=== PATIENT | female | born 1990 | race Caucasian/White ===

== ENCOUNTER 2017-12-04 18:39 | Emergency (ER) | payer OTHER | END 2017-12-04 18:58 | disposition home or self-care (01) | LOC: E/R 18:58 | DX: L02.92 Furuncle, unspecified (principal) | CPT/HCPCS: 99284; Z7502 ==

== ENCOUNTER 2018-05-06 17:43 | Emergency (ER) | payer MEDICAID, OTHER ==
[2018-05-06 21:11] LABS: URINE BLOOD (Dip) POC 3+ (NEGATIVE); URINE GLUCOSE (Dip) POC Negative (NEGATIVE); URINE KETONES (Dip) POC Negative (NEGATIVE); URINE LEUKOCYTE EST (Dip) POC 2+ (NEGATIVE); URINE NITRITE (Dip) POC Positive (NEGATIVE); URINE TOTAL PROTEIN POC 3+ (NEGATIVE)
== END 2018-05-06 22:09 | disposition home or self-care (01) ==
LOC: FTE 17:43
DX: N30.00 Acute cystitis without hematuria (principal)
CPT/HCPCS: 81003; 81025; 99283

== ENCOUNTER 2018-05-10 17:14 | Emergency (ER) | payer MEDICAID ==
[2018-05-10 18:26] LABS: ADD MAN DIFF? NO
[2018-05-10 18:28] LABS: BASOPHILS % 0.1 % (0.0-2.0); EOSINOPHILS % 0.1 % (0.0-7.0); HEMOGLOBIN 14.4 g/dl (12.0-16.0); LYMPHOCYTES # 1.2 10^3/ul (0.8-2.9); LYMPHOCYTES % 11.3 % (15.0-51.0); MEAN CORPUSCULAR HEMOGLOBIN 30.9 pg (29.0-33.0); MEAN CORPUSCULAR HGB CONC 33.5 g/dl (32.0-37.0); MEAN CORPUSCULAR VOLUME 92.3 fl (82.0-101.0); MEAN PLATELET VOLUME 9.9 fl (7.4-10.4); MONOCYTE # 0.9 10^3/ul (0.3-0.9); MONOCYTES % 8.9 % (0.0-11.0); NEUTROPHIL # 8.4 10^3/ul (1.6-7.5); NEUTROPHILS % 79.2 % (39.0-77.0); PLATELET COUNT 223 10^3/UL (140-415); RED BLOOD COUNT 4.66 10^6/ul (4.20-5.40); RED CELL DISTRIBUTION WIDTH 12.1 % (11.5-14.5)
[2018-05-10 18:28] LABS: WHITE BLOOD COUNT 10.6 10^3/ul (4.8-10.8)
[2018-05-10] MEDS: CEFTRIAXONE 1 GM/50 ML (PMX) 50 ML IVPB (18:37)
[2018-05-10] MEDS: ACETAMINOPHEN 325 MG TAB PO (18:37)
[2018-05-10] MEDS: SODIUM CHLORIDE 0.9% 1L BAG IV* (18:38)
[2018-05-10 18:45] LABS: ALANINE AMINOTRANSFERASE 146 IU/L (13-69); ALBUMIN 4.4 g/dl (3.3-4.9); ALBUMIN/GLOBULIN RATIO 1.04; ALKALINE PHOSPHATASE 153 IU/L (42-121); ANION GAP 19 (8-16); ASPARTATE AMINO TRANSFERASE 110 IU/L (15-46); BILIRUBIN,INDIRECT 0.6 mg/dl (0-1.1); BILIRUBIN,TOTAL 0.6 mg/dl (0.2-1.3); BLOOD UREA NITROGEN 7 mg/dl (7-20); CALCIUM 9.3 mg/dl (8.4-10.2); CARBON DIOXIDE 27 mmol/L (21-31); CHLORIDE 100 mmol/L (97-110); CREATININE 0.69 mg/dl (0.44-1.00); GLUCOSE 136 mg/dl (70-220); POTASSIUM 3.5 mmol/L (3.5-5.1); SODIUM 142 mmol/L (135-144); TOTAL PROTEIN 8.6 g/dl (6.1-8.1)
[2018-05-10 18:46] LABS: INR 1.02; PROTIME 13.5 Sec (11.9-14.9); PT RATIO 1.1
[2018-05-10 18:47] LABS: PARTIAL THROMBOPLASTIN TIME 33.8 Sec (25.0-35.0)
[2018-05-10 18:50] LABS: LACTIC ACID 2.1 mmol/L (0.5-2.0)
[2018-05-10] MEDS: IBUPROFEN 600 MG TAB PO (19:04)
[2018-05-10 19:18] LABS: ADD UMIC YES; UR ASCORBIC ACID NEGATIVE (NEGATIVE); UR BILIRUBIN (Dip) NEGATIVE (NEGATIVE); UR BLOOD (Dip) 2+ mg/dL (NEGATIVE); UR CLARITY TURBID (CLEAR); UR COLOR AMBER (YELLOW); UR GLUCOSE (Dip) 2+ mg/dL (NEGATIVE); UR KETONES (Dip) NEGATIVE (NEGATIVE); UR LEUKOCYTE ESTERASE (Dip) 3+ Leu/ul (NEGATIVE); UR MUCUS MODERATE /HPF (NONE SEEN); UR NITRITE (Dip) POSITIVE (NEGATIVE); UR RBC 19 /HPF (0-5); UR SPECIFIC GRAVITY (Dip) 1.019 (1.003-1.030); UR SQUAMOUS EPITHELIAL CELL MODERATE /HPF (FEW); UR TOTAL PROTEIN (Dip) 2+ mg/dl (NEGATIVE); UR UROBILINOGEN (Dip) 2+ mg/dL (NEGATIVE); UR WBC > 182 /HPF (0-5)
[2018-05-10] MEDS: ONDANSETRON 4 MG INJ IV (20:07)
[2018-05-10] MEDS: morphine 2 MG INJ IV (20:08)
[2018-05-10] MEDS: SOD CHLORIDE 0.9% 1,000 ML IV (20:10)
== END 2018-05-10 20:46 | disposition home or self-care (01) ==
LOC: FTE 17:14
DX: N12 Tubulo-interstitial nephritis, not specified as acute or chronic (principal)
CPT/HCPCS: 36415; 80053; 81001; 83605; 85025; 85610; 85730; 87040; 87086; 96374; 96375; 99284-25

== ENCOUNTER 2018-10-31 02:07 | Emergency (ER) | payer OTHER, MEDICAID ==
[2018-10-31] MEDS: IBUPROFEN 600 MG TAB PO (03:28)
[2018-10-31] MEDS: ACETAMINOPHEN 500 MG TAB PO (03:29)
[2018-10-31 03:34] LABS: ADD UMIC NO; UR ASCORBIC ACID 40 mg/dL (NEGATIVE); UR BILIRUBIN (Dip) NEGATIVE (NEGATIVE); UR BLOOD (Dip) NEGATIVE (NEGATIVE); UR CLARITY SLIGHTLY CLOUDY (CLEAR); UR COLOR YELLOW (YELLOW); UR GLUCOSE (Dip) NEGATIVE (NEGATIVE); UR KETONES (Dip) 2+ mg/dL (NEGATIVE); UR LEUKOCYTE ESTERASE (Dip) NEGATIVE Leu/ul (NEGATIVE); UR MUCUS MODERATE /HPF (NONE SEEN); UR NITRITE (Dip) NEGATIVE (NEGATIVE); UR RBC 2 /HPF (0-5); UR SPECIFIC GRAVITY (Dip) 1.025 (1.003-1.030); UR SQUAMOUS EPITHELIAL CELL MODERATE /HPF (FEW); UR TOTAL PROTEIN (Dip) NEGATIVE (NEGATIVE); UR UROBILINOGEN (Dip) NEGATIVE (NEGATIVE); UR WBC 3 /HPF (0-5)
[2018-10-31] MEDS: OSELTAMIVIR 75 MG CAP PO (04:07)
== END 2018-10-31 04:45 | disposition home or self-care (01) ==
LOC: FTE 02:07
DX: J10.1 Influenza due to other identified influenza virus with other respiratory manifestations (principal); J40 Bronchitis, not specified as acute or chronic
CPT/HCPCS: 71046; 81001; 81003; 81025; 87400; 99284-25